=== PATIENT | male | born 1955 | race Caucasian/White ===

== ENCOUNTER 2018-04-29 21:13 | Emergency (ER) | payer OTHER ==
[~2018-04-29] VITALS: Ht 165.1 cm; Wt 77.1 kg
[~2018-04-29 21:13] MED LIST: METF1000 PO
[2018-04-29 21:14] VITALS: BP 155/92
[2018-04-29] MEDS: DICYCLOMINE HCL LIQUID 20 MG, ALUMINUM HYD/MAG/SIMETHICONE 30 ML, LIDOCAINE VISCOUS 2% ... PO ONE ×3 (21:59)
[2018-04-29 22:38] LABS: ANION GAP 14.1 (8-16); CARBON DIOXIDE 25.4 mmol/L (21-32); CREATININE 0.8 mg/dL (0.7-1.3); POTASSIUM 3.5 mmol/L (3.5-5.1)
[2018-04-29 22:41] LABS: BASOPHILS # (AUTO) 0.1 K/uL (0.00-0.22); BASOPHILS % (AUTO) 0.6 % (0.0-2.0); EOSINOPHILS # (AUTO) 0.4 K/uL (0-0.4); HEMATOCRIT 46.9 % (36-52); HEMOGLOBIN 15.9 g/dL (12.0-18.0); LYMPHOCYTES # (AUTO) 3.2 K/uL (2.0-11.5); LYMPHOCYTES % (AUTO) 35.9 % (20.5-51.1); MEAN CORPUSCULAR HEMOGLOBIN 30 pg (27-31); MEAN CORPUSCULAR HGB CONC 34 g/dL (33-37); MEAN CORPUSCULAR VOLUME 88.1 fL (80-94); MONOCYTES # (AUTO) 0.9 K/uL (0.8-1.0); MONOCYTES % (AUTO) 10.2 % (1.7-9.3); NEUTROPHILS # (AUTO) 4.4 K/uL (1.8-7.7); NEUTROPHILS % (AUTO) 49.3 % (42.2-75.2); PLATELET COUNT (AUTO) 204 K/uL (140-450); RED BLOOD CELL COUNT(AUTO) 5.33 MIL/uL (4.20-6.10); RED CELL DISTRIBUTION WIDTH 12.7 % (11.6-13.7)
[2018-04-29 22:44] LABS: ALBUMIN 3.7 g/dL (3.4-5.0); TOTAL BILIRUBIN 0.7 mg/dL (0.0-1.0)
[2018-04-29 22:45] LABS: APPEARANCE,URINE CLEAR (CLEAR); BILIRUBIN,URINE NEGATIVE (NEGATIVE); BLOOD, URINE NEGATIVE (NEGATIVE); COLOR,URINE YELLOW (YELLOW); LEUKOCYTE ESTERASE ,URINE NEGATIVE (NEGATIVE); NITRITE, URINE NEGATIVE (NEGATIVE); PH,URINE 7.5 (5.0-9.0); UGLUCOSE 3+ (NEGATIVE)
[2018-04-30 00:28] VITALS: BP 140/82
== END 2018-04-30 00:29 | disposition home or self-care (01) ==
LOC: MED 21:13
DX: R10.13 Epigastric pain (principal); R30.9 Painful micturition, unspecified; R63.0 Anorexia; E11.9 Type 2 diabetes mellitus without complications; Z79.84 Long term (current) use of oral hypoglycemic drugs
CPT/HCPCS: 36415; 80053; 81003; 83690; 85025; 93005; 99285